=== PATIENT | male | born 1960 | race Two or more races ===

== ENCOUNTER 2017-04-07 16:44 | Emergency (ER) | payer MEDICAID ==
[~2017-04-07] VITALS: Ht 180.3 cm; Wt 68.0 kg
[2017-04-07 16:48] VITALS: BP 149/84
[2017-04-07] MEDS ORDERED: Norco 10mg/325mg tab ORAL ONE (17:00)
[2017-04-07] MEDS ORDERED: TYLENOL EXTRA500 MG ORAL (19:20)
[2017-04-07 19:28] VITALS: BP 120/65
[2017-04-07 19:52] VITALS: BP 120/65
--- NOTE | 2017-04-07 21:02 | Emergency Room Report ---
History of Present Illness General Chief Complaint: Back Pain-No Injury Source: Patient Present Illness HPI The patient is a 56-year-old male presenting for back pain. He states that this has been ongoing for the past 2 weeks but has chronic back pain. 8/10 dull ache and does not radiate. Worse with movement. He denies other symptoms including N, V, F, chills, SOB, CP, abd pain, dysuria, hematuria, numbness/ tingling, incontinence Allergies: Coded Allergies: No Known Allergies (Unverified , 04/07/17) Patient History Past Medical History: see triage record Pertinent Family History: none Reviewed Nursing Documentation: PMH: Agreed, PSxH: Agreed Nursing Documentation-PMH Past Medical History: No History, Except For Review of Systems All Other Systems: negative except mentioned in HPI Physical Exam Vital Signs Date Time Temp Pulse Resp B/P (MAP) Pulse Ox O2 Delivery O2 Flow Rate FiO2 04/07/17 16:39 100.8 112 14 149/84 98 Room Air Sp02 EP Interpretation: reviewed, normal General Appearance: no apparent distress, alert, GCS 15, non-toxic Head: normocephalic, atraumatic Eyes: bilateral eye normal inspection, bilateral eye PERRL ENT: hearing grossly normal, normal pharynx, no angioedema, normal voice Neck: full range of motion, supple/symm/no masses Respiratory: chest non-tender, lungs clear, normal breath sounds, speaking full sentences Gastrointestinal: normal bowel sounds, non tender, soft, non-distended, no guarding, no rebound Musculoskeletal: back normal, gait/station normal, normal range of motion, tender - bilat lumbar paraspinal muscles Neurologic: alert, oriented x3, responsive, motor strength/tone normal, sensory intact, speech normal Psychiatric: judgement/insight normal, memory normal, mood/affect normal, no suicidal/homicidal ideation Skin: normal color, no rash, warm/dry, well hydrated Medical Decision Making PA Attestation Dr. Jessica is my supervising physician. Patient management was discussed with my supervising physician Diagnostic Impression: Primary Impression: Back pain Qualified Codes: M54.5 - Low back pain; G89.29 - Other chronic pain ER Course The patient is a 56-year-old male presenting for back pain Ddx considered include but not limited to lumbar strain, degenerative disease, epidural abscess, cauda equina syndrome, chronic pain, pyelonephritis, narcotic dependency. PE: NAD Abd soft and non tender. No CVA tenderness + TTP with soft touch over bilat lumbar paraspinal muscles No midline TTP or step-offs The patient is given pain medication and time to rest in the emergency department. He states that he is feeling better and will be discharged home. ER precautions are given Last Vital Signs Date Time Temp Pulse Resp B/P (MAP) Pulse Ox O2 Delivery O2 Flow Rate FiO2 04/07/17 19:52 100.7 90 16 120/65 97 Room Air Status: improved Disposition: HOME, SELF-CARE Condition: Improved Scripts Acetaminophen* (TYLENOL EXTRA STRENGTH*) 500 Mg Tablet 500 MG ORAL Q8H Y for Prn Headache/Temp > 101, #30 TAB 0 Refills Prov: STEVEN CEDILLO 04/07/17 Referrals: [facility]ERR[facility] (PCP) Patient Instructions: Back Pain, Adult Additional Instructions: I discussed my findings with the patient. All questions and concerns have been answered. Treatment and medication compliance have been addressed. I advised the patient that they need to follow up with PMD in 3-5 days. Return to ED if symptoms worsen, new symptoms arise, or if needed for any reason. Patient verbalized understanding of discharge instructions. STEVEN CEDILLO Apr 07, 2017 21:02
== END 2017-04-07 19:51 | disposition home or self-care (01) ==
LOC: EDBD 16:44 → EMR 17:10
DX: M54.5 Low back pain (principal); G89.29 Other chronic pain
CPT/HCPCS: 99284